=== PATIENT | female | born 1945 | race Caucasian/White ===

== ENCOUNTER 2023-09-13 10:18 | Emergency (ER) | payer OTHER, SELFPAY ==
[2023-09-13 10:29] VITALS: BP 182/74
[2023-09-13 11:11] VITALS: BP 161/52
[2023-09-13 11:22] LABS: % Eosinophils 0.7 % (0-6); % Immature Granulocytes 0.2 % (0-0.5); % Lymphocytes 40.1 % (20.5-51.1); % Monocytes 7.3 % (1.7-9.3); % Neutrophils 50.7 % (42.2-75.2); Absolute Basophils 0.1 10^3/uL (0-0.2); Absolute Lymphocytes 2.3 10^3/uL (1.2-3.4); Absolute Monocytes 0.4 10^3/uL (0.1-0.6); Absolute Neutrophils 2.9 10^3/uL (1.4-6.5); Hematocrit 39.2 % (37.0-47.0); Hemoglobin 13.4 g/dL (12.0-16.0); Mean Corp Hgb Conc. 34.2 g/dL (33.0-37.0); Mean Corpuscular Hgb 30.8 pg (27.0-31.0); Mean Corpuscular Volume 90.1 fL (81.0-99.0); Mean Platelet Volume 11.1 fL (7.4-10.4); Nucleated Red Blood Cells % 0 %; Platelet Count 199 10^3/uL (130-400); Red Blood Cell Count 4.35 10^6/uL (4.20-5.40); Red Cell Dist. Width 12.4 % (11.5-14.5); White Blood Cell Count 5.7 10^3/uL (4.8-10.8)
[2023-09-13 11:37] LABS: ALT (SGPT) 32 U/L (0-35); AST (SGOT) 32 U/L (14-36); Albumin 4.1 g/dl (3.5-5.0); Alkaline Phosphatase 62 U/L (38-126); Blood Urea Nitrogen 17 mg/dl (7-17); Calcium 9.4 mg/dl (8.4-10.2); Carbon Dioxide 25 mmol/L (22-30); Chloride 109 mmol/L (98-107); Glucose 100 mg/dl (70-99); Potassium 4.8 mmol/L (3.5-5.1); Sodium 140 mmol/L (135-145); Total Bilirubin 0.5 mg/dl (0.2-1.3); Total Protein 6.6 g/dl (6.3-8.2); eGFR > 60.00
[2023-09-13 11:47] LABS: Troponin I < 0.012 ng/ml
[2023-09-13 12:00] VITALS: BP 136/43
[2023-09-13 12:08] LABS: TSH Reflex To Free T4 1.67 uIU/ml (0.47-4.68)
--- NOTE | 2023-09-13 12:23 | ED.GENMED ---
History of Present Illness
General
Chief Complaint: Blood Pressure Problem
Source: patient
Exam Limitations: none
Time Seen by Provider: 09/13/23 10:39
History of Present Illness
History of Present Illness:
77-year-old female presents with overall sensation of not feeling well. She was very tired 2 days ago. She feels like she is in a fog. No chest pain. No shortness of breath. She has a remote history of coronary artery disease. She is treated
for hypertension. No other complaints at this time. She states she was checking her blood pressure and it was quite erratic over the past several days.
Phy Exam
Physical Exam
Physical Exam:
General: Overall well nontoxic-appearing female no acute respiratory distress resting comfortably
HEENT: Normocephalic atraumatic
Heart: Regular rate and rhythm no murmur lungs: Clear no wheeze or rales
Extremities: No cyanosis or edema
Skin: Warm no rash
Neurologic exam: Alert and oriented x 3 no facial asymmetry
Course
Orders/Labs/Results
Orders:
Orders
09/13/23 10:21
Electrocardiogram (*1) Urgent
Reason for Study: Chest Pain
EKG- Treatment ONCE
09/13/23 11:05
Complete Blood Count/With Diff Urgent
Comprehensive Metabolic Panel Urgent
TSH Reflex To Free T4 Urgent
Troponin I Urgent
Abnormal Lab Results
09/13/23
11:05
MPV 11.1 H fL
(7.4-10.4)
Chloride 109 H mmol/L
(98-107)
Glucose 100 H mg/dl
(70-99)
09/13/23 11:05
09/13/23 11:05
Vital Signs
Initial and Last Documented VS:
Initial Vital Signs
Temp Pulse Resp BP Pulse Ox
98.0 F 81 12 182/74 97
09/13/23 10:29 09/13/23 10:29 09/13/23 10:29 09/13/23 10:29 09/13/23 10:29
Last Documented Vital Signs
Temp Pulse Resp BP Pulse Ox
98.0 F 81 12 138/54 98
09/13/23 10:29 09/13/23 10:29 09/13/23 10:29 09/13/23 13:00 09/13/23 13:30
MDM/Problems Addressed
Differential Diagnosis Includes:
Not feeling well with erratic blood pressures recently. No chest pain. EKG shows normal sinus rhythm. Will check labs including troponin. Vital signs remained stable here.
*Critical Care Note
Total Time (30-74mins, 75-104mins- exclusive of procedures): Not Applicable
Update Note
Update Note:
Patient resting comfortably upon reassessment. Vital signs remained stable. Labs reviewed within normal limits. Advised patient follow-up with her family doctor but no indication for further intervention. No sign of heart attack or stroke.
ED Attending Note
-
Portions of this chart may have been created with voice recognition software.� Occasional wrong word or��sound alike� substitutions may have occurred due to the inherent limitations of voice recognition software.
Discharge Plan
Departure
Patient Disposition: Home (Routine Discharge)
Date of Disposition: 09/13/23
Time of Disposition: 13:43
Patient with high blood pressure during this ER visit?: No
Discharge Problem:
Fatigue
Instructions: High Blood Pressure (DC)
Prescriptions:
No Action
simvastatin 40 MG tablet
40 mg PO QPM
cholecalciferol (vitamin D3) 1,000 UNIT capsule
1,000 unit PO MONTHLY
ezetimibe 10 MG tablet
10 mg PO QPM
sennosides [senna] 1 TABLET tablet
2 tab PO BID Qty: 0 0RF
acetaminophen 325 MG tablet
650 mg PO Q4HPRN PRN (Reason: PAIN) Qty: 0 0RF
aspirin 325 MG tablet,delayed release (DR/EC)
325 mg PO DAILY Qty: 0 0RF
docusate sodium 100 MG capsule
100 mg PO BID Qty: 0 0RF
oxycodone 5 MG tablet
5 - 10 mg PO Q4HPRN PRN (Reason: mild pain) Qty: 60 0RF
Referrals:
Debbie Isaac MD [Family Provider] -
Activity Restrictions/Additional Instructions:
Please return if needed. Follow up with PMD otherwise.
Interventions
Interventions:
*Risk Screen - Suicide Last Done: 09/13/23 10:56
*General Assessment Last Done: 09/13/23 10:56
*Neglect/Abuse Screening Last Done: 09/13/23 10:56
ED- Fall Risk Assessment Last Done: 09/13/23 10:56
*ED COVID-19 Vaccine History Last Done: 09/13/23 10:29
ED- Cardiac Assessment Last Done: 09/13/23 10:56
ED- Neurological Assessment Last Done: 09/13/23 10:56
ED- Pulmonary Assessment Last Done: 09/13/23 10:56
Discharge Date and Time
Print Language: INDONESIAN
[2023-09-13 13:00] VITALS: BP 138/54
== END 2023-09-13 14:02 | disposition home or self-care (01) ==
LOC: EMR 10:18
PROVIDERS: Physician Assistant; EMERGENCY PHYSICIAN Emergency Medicine; FAMILY PHYSICIAN Internal Medicine
DX: R53.83 Other fatigue (principal); I25.10 Atherosclerotic heart disease of native coronary artery without angina pectoris
CPT/HCPCS: 99283; 80053; 84443; 84484; 85025; 93005